=== PATIENT | male | born 1985 | race Caucasian/White ===

== ENCOUNTER 2016-07-22 21:27 | Emergency (ER) | payer BC ==
[~2016-07-22] VITALS: Ht 177.8 cm; Wt 88.0 kg
[2016-07-22 21:29] VITALS: BP 173/98; PULSE 70; RESP 16; TEMP 98; O2SAT 99
[2016-07-22] MEDS ORDERED: MEDR4PAK PO (22:39)
[2016-07-22] MEDS ORDERED: PRIL20CA9 PO (22:39)
[2016-07-22] MEDS ORDERED: AUGM875T PO (22:39)
[2016-07-22] MEDS ORDERED: DEXAMETHASONE SOD PHOS 4 MG/ML VIAL IV PUSH ONE (22:45)
[2016-07-22] MEDS ORDERED: ONDANSETRON HCL 4 MG/2 ML VIAL IV PUSH ONE (22:45)
[2016-07-22] MEDS ORDERED: MORPHINE SULFATE 4 MG/ML INJ IV PUSH ONE (22:45)
[2016-07-22] MEDS ORDERED: SODIUM CHLOR 0.9% 1000 ML INJ 1,000 ML IV ONE (22:45)
--- NOTE | 2016-07-22 22:46 | PD ---
HPI Chief Complaint: Oral / Dental Pain or Problem Time Seen by Provider: 22:32 Travel History International Travel<30 days: No Contact w/Intl Traveler<30days: No Traveled to known affect area: No History of Present Illness HPI The patient is a 31-year-old male who presents to the emergency department for sore throat. The patient is currently visiting from [place]. The patient developed a sore throat on Monday, was seen by his primary physician on Monday and prescribed Augmentin. The patient continued to have symptoms and was evaluated in an urgent care yesterday where they prescribed Zithromax and steroids. The patient was also administered a steroid injection per his report. However, the patient is having increasing pain and swelling located over the posterior aspect of the tongue. The patient also states that his voice is somewhat different, he has pain with swallowing, has difficulty swallowing pills, and his only been able to eat soup over the last 24 hours. The patient states he had a negative strep test performed on Monday at his physician's office. The patient denies any history of tobacco use or diabetes. He denies any fever, but did have chills and sweats on Monday. He does complain of some anterior superior neck pain and pain at the base of the tongue. The patient denies any chest pain, shortness breath, or cough. He denies any associated nausea, vomiting, or abdominal pain. PFSH Past Medical History Narrative Medical GERD Diminished Hearing: No GERD: Yes Tetanus Vaccination: < 5 Years Influenza Vaccination: No Past Surgical History Narrative Surgical Tonsillectomy Tonsillectomy: Yes Social History Alcohol Use: Yes (SOCIALLY) Tobacco Use: No Substance Use: No Allergies-Medications (Allergen,Severity, Reaction): Coded Allergies: No Known Allergies (Unverified , 07/22/16) Reported Meds & Prescriptions Reported Meds & Active Scripts Active Reported Prilosec (Omeprazole) 20 Mg Cap 20 Mg PO DAILY Medrol Dosepak (Methylprednisolone) 4 Mg Dspk 4 Mg PO DIRECTED Per Pharmacist direction Augmentin (Amoxicillin-Clavulanate) 875-125 mg Tab 875 Mg PO BID not for use in CrCl <30 ml/min. Review of Systems Except as stated in HPI: all other systems reviewed are Neg General / Constitutional: Positive: Chills, No: Fever HENT: Positive: Sore Throat, Neck Pain, No: Headaches, Congestion, Ear Discharge, Earache Cardiovascular: No: Chest Pain or Discomfort Respiratory: No: Cough, Shortness of Breath Gastrointestinal: Positive: Dysphagia, No: Nausea, Vomiting, Abdominal Pain Musculoskeletal: No: Myalgias, Arthralgias Skin: No Rash Physical Exam Narrative GENERAL: Awake, alert, pleasant 31-year-old male who appears his stated age and is in no acute respiratory distress. Patient's voice is slightly muffled. SKIN: Warm and dry. HEAD: Atraumatic. Normocephalic. EYES: Pupils equal and round. No scleral icterus. No injection or drainage. ENT: No nasal bleeding or discharge. Oropharynx reveals erythema with white streaks in the posterior oropharynx. When the patient lifts up his tongue, there is no obvious mass or swelling under the tongue. NECK: Trachea midline. No JVD. Bilateral shoddy anterior cervical lymphadenopathy. CARDIOVASCULAR: Regular rate and rhythm. No murmur appreciated. RESPIRATORY: No accessory muscle use. Clear to auscultation. Breath sounds equal bilaterally. GASTROINTESTINAL: Abdomen soft, non-tender, nondistended. No rebound tenderness. MUSCULOSKELETAL: No obvious deformities. No clubbing. No cyanosis. No edema. NEUROLOGICAL: Awake and alert. No obvious cranial nerve deficits. Motor grossly within normal limits. Normal speech. PSYCHIATRIC: Appropriate mood and affect; insight and judgment normal. Data Data Last Documented VS Vital Signs Date Time Temp Pulse Resp B/P Pulse Ox O2 Delivery O2 Flow Rate FiO2 07/23/16 00:04 81 16 143/91 98 Room Air 07/22/16 21:29 98.0 Orders Group A Rapid Strep Screen (07/22/16 22:39) Ct Soft Tiss Neck W Iv Cont (07/22/16 ) Complete Blood Count With Diff (07/22/16 22:39) Basic Metabolic Panel (Bmp) (07/22/16 22:39) Monoscreen (07/22/16 22:39) Sodium Chlor 0.9% 1000 Ml Inj (Ns 1000 M (07/22/16 22:45) Dexamethasone Inj (Decadron Inj) (07/22/16 22:45) Morphine Inj (Morphine Inj) (07/22/16 22:45) Ondansetron Inj (Zofran Inj) (07/22/16 22:45) Ampicillin-Sulbactam Inj (Unasyn Inj) (07/22/16 23:00) Iohexol 350 Inj (Omnipaque 350 Inj) (07/22/16 23:04) Strep Culture (Group A) (07/22/16 22:50) Labs Laboratory Tests Test 07/22/16 22:50 White Blood Count 9.5 TH/MM3 Red Blood Count 5.01 MIL/MM3 Hemoglobin 15.6 GM/DL Hematocrit 44.7 % Mean Corpuscular Volume 89.1 FL Mean Corpuscular Hemoglobin 31.2 PG Mean Corpuscular Hemoglobin 35.0 % Concent Red Cell Distribution Width 13.6 % Platelet Count 201 TH/MM3 Mean Platelet Volume 8.9 FL Neutrophils (%) (Auto) 61.8 % Lymphocytes (%) (Auto) 26.4 % Monocytes (%) (Auto) 10.9 % Eosinophils (%) (Auto) 0.3 % Basophils (%) (Auto) 0.6 % Neutrophils # (Auto) 5.9 TH/MM3 Lymphocytes # (Auto) 2.5 TH/MM3 Monocytes # (Auto) 1.0 TH/MM3 Eosinophils # (Auto) 0.0 TH/MM3 Basophils # (Auto) 0.1 TH/MM3 CBC Comment DIFF FINAL Differential Comment Sodium Level 139 MEQ/L Potassium Level 4.2 MEQ/L Chloride Level 101 MEQ/L Carbon Dioxide Level 26.3 MEQ/L Anion Gap 12 MEQ/L Blood Urea Nitrogen 15 MG/DL Creatinine 1.03 MG/DL Estimat Glomerular Filtration 83 ML/MIN Rate Random Glucose 89 MG/DL Calcium Level 8.7 MG/DL Monoscreen NEG MDM Medical Decision Making Medical Screen Exam Complete: Yes Emergency Medical Condition: Yes Medical Record Reviewed: Yes Interpretation(s) Last Impressions Neck CT 07/22/16 0000 Signed Impressions: Service Date/Time: Friday, July 22, 2016 22:54 - CONCLUSION: Lymphadenopathy as described above, nonspecific, most likely reactive. Submandibular and parotid glands are normal in appearance. Donnie Atwood MD Laboratory Tests Test 07/22/16 22:50 White Blood Count 9.5 TH/MM3 Red Blood Count 5.01 MIL/MM3 Hemoglobin 15.6 GM/DL Hematocrit 44.7 % Mean Corpuscular Volume 89.1 FL Mean Corpuscular Hemoglobin 31.2 PG Mean Corpuscular Hemoglobin 35.0 % Concent Red Cell Distribution Width 13.6 % Platelet Count 201 TH/MM3 Mean Platelet Volume 8.9 FL Neutrophils (%) (Auto) 61.8 % Lymphocytes (%) (Auto) 26.4 % Monocytes (%) (Auto) 10.9 % Eosinophils (%) (Auto) 0.3 % Basophils (%) (Auto) 0.6 % Neutrophils # (Auto) 5.9 TH/MM3 Lymphocytes # (Auto) 2.5 TH/MM3 Monocytes # (Auto) 1.0 TH/MM3 Eosinophils # (Auto) 0.0 TH/MM3 Basophils # (Auto) 0.1 TH/MM3 CBC Comment DIFF FINAL Differential Comment Sodium Level 139 MEQ/L Potassium Level 4.2 MEQ/L Chloride Level 101 MEQ/L Carbon Dioxide Level 26.3 MEQ/L Anion Gap 12 MEQ/L Blood Urea Nitrogen 15 MG/DL Creatinine 1.03 MG/DL Estimat Glomerular Filtration 83 ML/MIN Rate Random Glucose 89 MG/DL Calcium Level 8.7 MG/DL Monoscreen NEG Date/Time Procedure Status Source Growth 07/22/16 22:50 Group A Streptococcus Screen ([facility]) - Final Complete Throat 07/22/16 22:50 Group A Streptococcus Screen Received Throat Pending Differential Diagnosis Differential diagnosis includes viral pharyngitis, strep pharyngitis, mononucleosis, Gio angina, peritonsillar abscess, epiglottitis, retropharyngeal abscess, foreign body, mononucleosis. Narrative Course IV was established, labs are drawn and sent, and the patient was placed on cardiac telemetry monitoring and continuous pulse oximetry monitoring. The patient was administered Decadron 8 mg intravenously, Unasyn 3 g intravenously, morphine 4 g intravenously, and Zofran 4 mg intravenously. The patient was also administered 1 L of IV fluids. CT soft tissue cervical spine was ordered to evaluate for possible pharyngeal/retropharyngeal abscess or possible epiglottitis. Laboratory evaluation is unremarkable. Strep screen is negative. [place] screen is negative. CT of the soft tissue neck with IV contrast reveals reactive cervical lymphadenopathy, but no evidence of abscess. Patient appears to have pharyngitis, Zyrtec and prescribed Augmentin, Zithromax, and was recently placed on steroids. I will add Magic mouthwash for symptomatic relief. The patient is advised to follow-up with his primary physician and return if symptoms worsen or progress. Diagnosis Primary Impression: Pharyngitis Qualified Code: J02.9 - Pharyngitis, unspecified etiology Patient Instructions: Narcotic given in the ED Additional Instructions: Medications as directed. Clear liquid diet and advance as tolerated. Continue steroids and Augmentin. Follow-up with your primary physician. Please provide the patient a copy of his CT results and lab results at discharge. Med/Other Pt SpecificInfo: Prescription(s) given Scripts Obrhmcqc-Pqrtzkcigvujyrm-Pjygvslxw Liq (Magic Mouthwash Adult Liq)120 Ml Susp10 Ml SWISH-SWAL ACHS #240 ML Ref 0 Each 5mL contains: Nystatin 200,000units, Diphenhydramine 4.25mg, Viscous Lidocaine 10mg, Zavaleta syrup 0.8 mL Prov:Ameya Lewis MD 07/23/16 Disposition: DISCHARGE HOME Condition: Stable Ameya Lewis MD Jul 22, 2016 22:46
[2016-07-22] MEDS ORDERED: AMPICILLIN-SULBACTAM INJ 3 GM in SODIUM CHLORIDE 0.9% INJ 100 ML IV ONE (23:00)
[2016-07-22] MEDS ORDERED: IOHEXOL 350 MG/ML 10 ML VIAL (for RAD DIAG) IV ONE (23:04)
[2016-07-22 23:07] LABS: AUTOMATED NEUTROPHIL # 5.9 TH/MM3 (1.8-7.7); BASOPHIL # 0.1 TH/MM3 (0-0.2); BASOPHIL % 0.6 % (0.0-2.0); EOSINOPHIL % 0.3 % (0.0-4.0); HEMATOCRIT 44.7 % (39.0-51.0); HEMO FLAGS DIFF FINAL; LYMPH % 26.4 % (9.0-44.0); LYMPHOCYTE # 2.5 TH/MM3 (1.0-4.8); MEAN CELL VOLUME 89.1 FL (80.0-100.0); MEAN CORPUSCULAR HEMOGLOBIN 31.2 PG (27.0-34.0); MONO % 10.9 % (0.0-8.0); NEUT % 61.8 % (16.0-70.0); PLATELET COUNT 201 TH/MM3 (150-450); RED BLOOD COUNT 5.01 MIL/MM3 (4.50-5.90); RED CELL DISTRIBUTION WIDTH 13.6 % (11.6-17.2); WHITE BLOOD COUNT 9.5 TH/MM3 (4.0-11.0)
--- NOTE | 2016-07-22 23:18 | RADRPT ---
EXAM DATE/TIME: 07/22/2016 22:54 [facility] COMPARISON: No previous studies available for comparison. INDICATIONS : Bilateral submandibular neck swelling with pain. IV CONTRAST: 75 cc Omnipaque 350 (iohexol) IV RADIATION DOSE: 19.57 CTDIvol (mGy) MEDICAL HISTORY : None SURGICAL HISTORY : Tonsillectomy. ENCOUNTER: Initial ACUITY: 4 - 6 days PAIN SCALE: 9/10 LOCATION: Bilateral submandibular. TECHNIQUE: Volumetric scanning of the neck was performed. Using automated exposure control and adjustment of th e mA and/or kV according to patient size, radiation dose was kept as low as reasonably achievable to obtain optimal diagnostic quality images. FINDINGS: NASOPHARYNX: The nasopharyngeal airway has a normal configuration. No mucosal thickening or mass is seen. OROPHARYNX: The intrinsic muscles of the tongue are symmetric. The tonsillar pillars are intact. The prevertebr al soft tissues are not thickened. LARYNX: The supraglottic, glottic, and infraglottic structures are intact. PARAPHARYNGEAL: The parapharyngeal space is intact. SALIVARY GLANDS: The parotid and submandibular glands are intact. LYMPH NODES: There is lymphadenopathy identified in the bilateral submandibular and submental regions measuring up to 1.4 cm on the right in short axis dimension 1.7 cm on the left. THYROID: Homogeneous enhancement without evidence of nodule. BONES: Unremarkable. CONCLUSION: Lymphadenopathy as described above, nonspecific, most likely reactive. Submandibular and parotid glan ds are normal in appearance. Donnie Atwood MD on July 22, 2016 at 23:15 Board Certified Radiologist. This report was verified electronically.
[2016-07-22 23:56] LABS: BICARBONATE 26.3 MEQ/L (21.0-32.0)
[2016-07-22 23:57] LABS: POTASSIUM 4.2 MEQ/L (3.5-5.1)
[2016-07-23 00:04] VITALS: BP 143/91; PULSE 81; RESP 16; O2SAT 98
[2016-07-23] MEDS ORDERED: MAGICADU2 SWISH-SWAL (00:25)
[2016-07-23 00:38] VITALS: BP 136/77; TEMP 98.8
== END 2016-07-23 00:54 | disposition home or self-care (01) ==
LOC: NEPE 21:27
DX: J02.9 Acute pharyngitis, unspecified (principal)
CPT/HCPCS: 70491; 80048; 85025; 86308; 87081; 87880; 96365; 96375; 99284; J0295; J1100; J2270; J2405; J7030; Q9967